=== PATIENT | female | born 1960 | race American Indian/Alaskan Native ===

== ENCOUNTER 2017-04-20 14:59 | Emergency (ER) | payer OTHER ==
[2017-04-20 15:13] VITALS: BP 155/78
--- NOTE | 2017-04-20 16:49 | Emergency Department Report ---
Chief Complaint: Syncope Stated Complaint: HEAD, CHIN,SHOULDER PAIN/HTN Time Seen by Provider: 04/20/17 16:40 - HPI History of Present Illness: Patient is a 56-year-old [place] female [place] striking her anterior forehead and right shoulder. Patient states that there was some loss of consciousness. Patient has a headache that is 8 out of 10 pounding at this time. Patient states she has light sensitivity. Patient has had no nausea vomiting or ataxia at this time. - ROS Review of Systems: Review of systems negative except for those systems in the HPI - Exam Vital Signs: Vital Signs 04/20/17 15:09 Temperature 98.3 F Pulse Rate 101 H Respiratory 18 Rate Blood Pressure 155/78 O2 Sat by Pulse 99 Oximetry Physical Exam: Focused exam patient's general exam patient is holding her eyes tight shows low stating that the light is bothering her eyes. Patient has no obvious injury to the head there is no epistaxis there is no laceration to the scalp. HEENT is within normal limits. Heart and lungs patient has clear lungs auscultation normal heart tones abdomen soft nontender muscle skeletal exam patient's right shoulder has anterior tenderness at the before meals joint she does have full range of motion. MSE screening note: Focused history and physical exam performed. Due to findings the following was ordered: CT head without contrast and x-ray of the right shoulder have been ordered ED Medical Decision Making - Radiology Data Radiology results: report reviewed CT head and x-ray of the right shoulder were within normal limits with no acute process ED Disposition for MSE Clinical Impression: Concussion, Shoulder injury Disposition: TO HOME OR SELFCARE Is pt being admited?: No Does the pt Need Aspirin: No Condition: Fair Instructions: Concussion (ED), Rotator Cuff Injury (ED), RICE Therapy (ED) Prescriptions: HYDROcodone/APAP 5-325 [[place] 5/325] 1 each PO Q4HR PRN #14 tablet PRN Reason: Pain Referrals: DA PITTMAN MD [Primary Care Provider] - 3-5 Days
[2017-04-20] MEDS ORDERED: MOTRIN PO ONE (16:50)
[2017-04-20] MEDS ORDERED: NORCO 5/325 PO ONE (16:50)
--- NOTE | 2017-04-20 17:40 | XRay Report ---
FINAL REPORT EXAM: XR SHOULDER 2+V RT HISTORY: RIGHT SHOULDER injury TECHNIQUE: Three views of the right shoulder. PRIORS: None. FINDINGS: No fracture. No dislocation. Normal mineralization. No soft tissue abnormality. IMPRESSION: No acute right shoulder abnormality.
--- NOTE | 2017-04-20 17:58 | Cat Scan Report ---
FINAL REPORT EXAM: CT HEAD/BRAIN WO CON HISTORY: closed head injury TECHNIQUE: CT of the head was performed without intravenous contrast. PRIORS: None. FINDINGS: The ventricles are normal in shape and position. The ventricles are nondilated. No intracranial hemorrhage, mass, mass effect, midline shift or evidence of acute ischemic infarct. The basilar cisterns are patent. The paranasal sinuses are clear. The extracranial soft tissues demonstrate no abnormality. The calvarium is intact. The orbits are intact. The mastoid air cells are clear. IMPRESSION: No acute intracranial abnormality.
== END 2017-04-20 18:59 | disposition home or self-care (01) ==
LOC: ED 14:59
DX: S06.0X9A Concussion with loss of consciousness of unspecified duration, initial encounter (principal); S49.91XA Unspecified injury of right shoulder and upper arm, initial encounter; W18.39XA Other fall on same level, initial encounter; Y93.89 Activity, other specified; Y99.8 Other external cause status; Y92.520 Airport as the place of occurrence of the external cause
CPT/HCPCS: 70450; 93005; 93010